=== PATIENT | male | born 1945 | race Hispanic/Latino ===

== ENCOUNTER 2022-12-09 08:25 | Emergency (ER) | payer MEDICARE ==
[~2022-12-09] VITALS: Ht 172.7 cm; Wt 78.9 kg
[2022-12-09] MEDS ORDERED: KETOROLAC TROMETHAMINE 30 MG/ML VIAL IM STA (08:49)
[2022-12-09] MEDS ORDERED: LIDOCAINE 4% PATCH TP STA (08:49)
[2022-12-09] MEDS ORDERED: METHOCARBAMOL 750 MG TAB PO ONE (09:00)
[2022-12-09] MEDS ORDERED: ACETAMINOPHEN 325 MG TAB PO ONE (09:00)
[2022-12-09 10:12] LABS: CLARITY,URINE CLEAR (CLEAR); COLOR,URINE YELLOW (YELLOW); LEUKOCYTE ESTERASE ,URINE NEGATIVE (NEGATIVE); NITRITE,URINE NEGATIVE (NEGATIVE); PROTEIN,URINE DIPSTICK >=300 (NEGATIVE)
[2022-12-09 10:13] LABS: BACTERIA,URINE FEW /HPF; EPITHELIAL CELLS,URINE FEW /LPF; KETONES,URINE TRACE (NEGATIVE); URINE UROBILINOGEN 0.2 mg/dL (0.2 - 1); WBC,URINE (MAN) 0-5 /HPF (0-5)
[2022-12-09] MEDS ORDERED: NAPROXEN250 MG PO (10:27)
[2022-12-09] MEDS ORDERED: METHOCARBAMOL750 MG PO (10:27)
== END 2022-12-09 10:55 | disposition home or self-care (01) ==
LOC: ER 08:33
DX: M54.50 Low back pain, unspecified (principal); I10 Essential (primary) hypertension; E11.9 Type 2 diabetes mellitus without complications; E78.5 Hyperlipidemia, unspecified; M10.9 Gout, unspecified; Z86.73 Personal history of transient ischemic attack (TIA), and cerebral infarction without residual deficits
CPT/HCPCS: 72100; 72220; 81001; 99283; J1885

== ENCOUNTER 2023-01-13 13:00 | Outpatient (RCR) | payer MEDICARE ==
[~2023-01-13 13:00] MED LIST: METHOCARBAMOL750 MG PO; NAPROXEN250 MG PO
== END 2023-01-25 ==
LOC: PT 13:00
PROVIDERS: ATTEND Physician Assistant
DX: M47.816 Spondylosis without myelopathy or radiculopathy, lumbar region (principal)